=== PATIENT | female | born 1970 | race American Indian/Alaskan Native ===

== ENCOUNTER 2016-10-07 15:24 | Emergency (ER) | payer MEDICAID, OTHER ==
--- NOTE | 2016-10-07 15:57 | C.PDOC ---
History Of Present Illness SINUS BRETT X 2 WEEKS, "FOUL TASTE IN MOUTH", "FEELS LIKE ROOF OF MOUTH IS ON FIRE" X SEV DAYS. SUBJ FEVER. DENIES HO SEASONAL ALLERGIES. PS NOSE INSIDE FEELS RAW BUT DENIES USING SPRAYS OR EXCESSIVE NOSE BLOWING. EXAM HEENT +FRONTAL SINUS TEND B/L. NOSE +HYPEREMIC MUCOSA B/L NO VESICLES OR OTHER LESIONS NOTED, NO SCABS. NO NASAL DC. MOUTH: HARD PALATE WNL, NO NOTED LESIONS OR EXCESSIVE ERYTHEMA. 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 Time Seen by Provider: 10/07/16 15:54 Chief Complaint (Nursing): ENT Problem Past Medical History Vital Signs: Last Vital Signs Temp 97.9 F 10/07/16 15:27 Pulse 87 10/07/16 15:27 Resp 20 10/07/16 15:27 BP 115/82 10/07/16 15:27 Pulse Ox 98 10/07/16 15:27 - Social History Hx Alcohol Use: No Hx Substance Use: No - Immunization History Hx Tetanus Toxoid Vaccination: No Hx Influenza Vaccination: Yes Hx Pneumococcal Vaccination: No ED Course And Treatment O2 Sat by Pulse Oximetry: 98 Disposition Counseled Patient/Family Regarding: Diagnosis, Need For Followup, Rx Given - Disposition Referrals: Walter Adan MD [Staff Provider] - Disposition: HOME/ ROUTINE Disposition Time: 16:20 Condition: GOOD Prescriptions: Amoxicillin/Clavulanate [Augmentin 875 MG-125 MG] 1 tab PO BID #14 tab Instructions: Sinusitis (ED) Forms: [employer] (Greek) - Clinical Impression Clinical Impression: Sinusitis
[2016-10-07] MEDS ORDERED: Iohexol 240 (50 ml) PO STA (16:43)
[2016-10-07] MEDS ORDERED: Sodium Chloride 0.9% 1,000 ML IV ONE (16:45)
[2016-10-07 17:34] LABS: BASO % 0.4 % (0.0-2.0); EOS # 0.5 K/uL (0.0-0.7)
--- NOTE | 2016-10-07 17:37 | C.PDOC ---
History Of Present Illness 46-year-old female, PMHx includes ulcerative colitis, seen by GI, has recently moved to [place], and due to lack of resources, is unable to f/u with anyone. Patient states she has intermittent abdominal pain with bloody mucus stools. Over past several days, symptoms have been worsening, with associated appetite loss and weight loss, resulting in her coming to the ED for evaluation. She is also c/o sinus congestion with facial millan and pressure. She has no nasal discharge but does feel pain across her upper teeth. Time Seen by Provider: 10/07/16 15:54 Chief Complaint (Nursing): ENT Problem History Per: Patient History/Exam Limitations: no limitations Onset/Duration Of Symptoms: Days Current Symptoms Are (Timing): Still Present Severity: Moderate Past Medical History Reviewed: Historical Data, Nursing Documentation, Vital Signs Vital Signs: Last Vital Signs Temp 99.1 F 10/07/16 22:21 Pulse 82 10/07/16 20:55 Resp 88 H 10/07/16 22:21 BP 116/65 10/07/16 22:21 Pulse Ox 18 L 10/07/16 22:21 Family History: States: No Known Family Hx - Social History Hx Alcohol Use: No Hx Substance Use: No - Immunization History Hx Tetanus Toxoid Vaccination: No Hx Influenza Vaccination: Yes Hx Pneumococcal Vaccination: No Review Of Systems Except As Marked, All Systems Reviewed And Found Negative. Constitutional: Negative for: Fever, Chills Cardiovascular: Negative for: Chest Pain, Palpitations Respiratory: Negative for: Shortness of Breath Gastrointestinal: Positive for: Abdominal Pain, Hematochezia. Negative for: Nausea, Vomiting Musculoskeletal: Negative for: Back Pain Neurological: Negative for: Weakness, Numbness Physical Exam - Physical Exam Appears: Non-toxic, No Acute Distress Skin: Warm, Dry, No Rash Head: Atraumatic, Normacephalic Eye(s): bilateral: PERRL, EOMI, Conjunctiva Pale Nose: Normal Oral Mucosa: Moist Lips: Normal Appearing Neck: Normal ROM Chest: Symmetrical Cardiovascular: Rhythm Regular, No Murmur Respiratory: Normal Breath Sounds, No Accessory Muscle Use Gastrointestinal/Abdominal: Soft, Tenderness (Mild, lower.), No Guarding, No Rebound Extremity: Normal ROM Neurological/Psych: Oriented x3, Normal Speech ED Course And Treatment - Laboratory Results Result Diagrams: 10/07/16 17:22 10/07/16 17:22 Lab Interpretation: Abnormal (Mild anemia with normal WBC, CMP unremarkable.) O2 Sat by Pulse Oximetry: 98 Pulse Ox Interpretation: Normal - CT Scan/US CT ABDOMEN/PELVIS Other Rad Studies (CT/US): Read By Radiologist, Radiology Report Reviewed CT/US Interpretation: FINDINGS: Lower thorax: Heart size is normal. There is minimal atelectasis and scarring at the lung bases. ABDOMEN: Liver: There are multiple small low-attenuation lesions in the liver. Largest is consistent with cysts. Smaller lesions are too small to accurately characterize. Gallbladder and bile ducts: unremarkable. Pancreas: unremarkable. Spleen: unremarkable. Adrenals: unremarkable. Kidneys and ureters: unremarkable. Stomach and bowel: Stomach is partially distended with an air-fluid level. Rotation is normal. Small. bowel is partially opacified with contrast. There is no obstruction. Terminal ileum is. unremarkable.Appendix is not visualized.There is no pericecal inflammation. There is diffuse hepatic. flexure, transverse colon and descending colon wall thickening. There is less extensive sigmoid and. rectal wall thickening. Appendix: See stomach and bowel. PELVIS: Bladder: Bladder is almost empty. There is mild bladder wall thickening. Reproductive: Uterus is mildly enlarged. There are multiple nabothian cysts. There is a dominant. follicle the left ovary. Right adnexa is mildly prominent. ABDOMEN and PELVIS: Intraperitoneal space: There is no free air or free fluid. Bones/ joints: There is minimal degenerative osseous change. Soft tissues: There is a very small fat containing umbilical hernia. Vasculature: There are calcified phleboliths. Vascular structures are unremarkable. Lymph nodes: Adenopathy shotty. IMPRESSION: Colitis; probable fibroid uterus Reevaluation Time: 23:19 Reassessment Condition: Improved (after Toradol and Percocet.) - Physician Consult Information Physician Contacted: Riki Mccarthy Outcome Of Conversation: Patient can follow up in the clinic for further GI evaluation Disposition - Disposition Referrals: [facility] [Outside] Disposition: HOME/ ROUTINE Disposition Time: 23:20 Condition: IMPROVED Prescriptions: Acetaminophen/Oxycodone Hydr [Percocet 10/325 mg Tab] 1 tab PO Q6H PRN #15 tab PRN Reason: Pain, Severe (8-10) Amoxicillin/Clavulanate [Augmentin 875 MG-125 MG] 1 tab PO BID #14 tab Amoxicillin/Clavulanate [Augmentin 875 MG-125 MG] 1 tab PO BID #14 tab Instructions: Sinusitis (ED), Colitis (ED) Forms: [employer] (Icelandic) - Clinical Impression Clinical Impression: Sinusitis, Colitis - Scribe Statement The provider has reviewed the documentation as recorded by the Scribe (Milli Lopez) All medical record entries made by the Scribe were at my direction and personally dictated by me. I have reviewed the chart and agree that the record accurately reflects my personal performance of the history, physical exam, medical decision making, and the department course for this patient. I have also personally directed, reviewed, and agree with the discharge instructions and disposition.
[2016-10-07 17:42] LABS: EOS % 4.5 % (0.0-4.0); HEMATOCRIT 31.5 % (34.0-47.0); LYMPH # 3.1 K/uL (1.0-4.3); MEAN CELL VOLUME 82.3 fL (81.0-99.0); MEAN CORPUSCULAR HEMOGLOBIN 26.2 pg (27.0-31.0); MEAN CORPUSCULAR HGB CONC 31.8 g/dL (33.0-37.0); MEAN PLATELET VOLUME 7.4 fL (7.2-11.7); MONO % 9.5 % (0.0-10.0); RED CELL DISTRIBUTION WIDTH 15.4 % (11.5-14.5); WHITE BLOOD COUNT 10.6 K/uL (4.8-10.8)
[2016-10-07 17:56] LABS: RBC URINE 16 /hpf (0-3); URINE BILIRUBIN NEGATIVE (NEGATIVE); URINE BLOOD NEGATIVE (NEGATIVE); URINE COLOR Yellow (YELLOW); URINE GLUCOSE (UA) NORMAL (Normal); URINE KETONE NEGATIVE (NEGATIVE); URINE LEUKOCYTE ESTERASE NEG Leu/uL (Negative); URINE PROTEIN NEGATIVE (NEGATIVE); URINE UROBILINOGEN NORMAL mg/dL (0.2-1.0); WBC URINE 3 /hpf (0-5)
[2016-10-07] MEDS ORDERED: Sodium Chloride 0.9% 1,000 ML ONE (17:59)
[2016-10-07] MEDS ORDERED: Iohexol 240 (50 ml) ONE (17:59)
[2016-10-07 18:21] LABS: CHLORIDE 99 mmol/L (98-107); SODIUM 140 mmol/L (132-148)
[2016-10-07 18:22] LABS: POTASSIUM 3.7 mmol/L (3.6-5.2)
[2016-10-07 18:24] LABS: ALB/GLOB RATIO 0.8 (1.0-2.1); ALKALINE PHOSPHATASE 59 U/L (38-126); ALT/SGPT 19 U/L (9-52); AST/SGOT 14 U/L (14-36); BILIRUBIN,TOTAL 0.3 mg/dL (0.2-1.3); BLOOD UREA NITROGEN 8 mg/dL (7-17); CARBON DIOXIDE 25 mmol/L (22-30); GFR AFRICAN-AMERICAN > 60; GLUCOSE,RANDOM 83 mg/dL (65-105); TOTAL PROTEIN 6.6 g/dL (6.3-8.3)
[2016-10-07 18:25] LABS: CALCIUM 8.3 mg/dl (8.6-10.4)
[2016-10-07] MEDS ORDERED: Iohexol 300 100 ML IJ ONE (18:58)
--- NOTE | 2016-10-07 20:36 | CT ---
EXAM: CT Abdomen and Pelvis With Intravenous Contrast CLINICAL HISTORY: 46 years old, female; Pain; Abdominal pain; Generalized; Additional info: Abd pain with HX ulcerative colitis TECHNIQUE: Axial computed tomography images of the abdomen and pelvis with intravenous contrast. This CT exam was performed using one or more of the following dose reduction techniques: automated exposure control, adjustment of the mA and/or kV according to patient size, and/or use of iterative reconstruction technique. Coronal and sagittal reformatted images were created and reviewed. CONTRAST: 100 mL of omnipaque 300 administered intravenously. EXAM DATE/TIME: 10/07/2016 4:43 PM COMPARISON: There are no prior studies for comparison. FINDINGS: Lower thorax: Heart size is normal. There is minimal atelectasis and scarring at the lung bases ABDOMEN: Liver: There are multiple small low-attenuation lesions in the liver. Largest is consistent with cysts. Smaller lesions are too small to accurately characterize. Gallbladder and bile ducts: unremarkable Pancreas: unremarkable Spleen: unremarkable Adrenals: unremarkable Kidneys and ureters: unremarkable Stomach and bowel: Stomach is partially distended with an air-fluid level. Rotation is normal. Small bowel is partially opacified with contrast. There is no obstruction. Terminal ileum is unremarkable.Appendix is not visualized.There is no pericecal inflammation. There is diffuse hepatic flexure, transverse colon and descending colon wall thickening. There is less extensive sigmoid and rectal wall thickening. Appendix: See stomach and bowel PELVIS: Bladder: Bladder is almost empty. There is mild bladder wall thickening. Reproductive: Uterus is mildly enlarged. There are multiple nabothian cysts. There is a dominant follicle the left ovary. Right adnexa is mildly prominent. ABDOMEN and PELVIS: Intraperitoneal space: There is no free air or free fluid. Bones/joints: There is minimal degenerative osseous change. Soft tissues: There is a very small fat containing umbilical hernia. Vasculature: There are calcified phleboliths. Vascular structures are unremarkable. Lymph nodes: Adenopathy shotty IMPRESSION: Colitis; probable fibroid uterus Additional findings as described above.
[2016-10-07] MEDS ORDERED: Morphine 4 MG/ML VIAL ONE (22:29)
[2016-10-07] MEDS ORDERED: Amoxicillin-Clav 875-125 mg Tab PO STA (23:22)
[2016-10-07] MEDS ORDERED: Oxycodone/Acetaminophen 5/325 mg Tab PO STA (23:23)
[2016-10-07] MEDS ORDERED: Oxycodone/Acetaminophen 5/325 mg Tab ONE (23:29)
[2016-10-07] MEDS ORDERED: Amoxicillin-Clav 875-125 mg Tab PO ONE (23:29)
[2016-10-07 23:34] VITALS: BP 103/68; PULSE 90; RESP 16; TEMP 97.8; O2SAT 99
== END 2016-10-07 23:59 | disposition home or self-care (01) ==
LOC: C.ER 15:24
DX: K52.9 Noninfective gastroenteritis and colitis, unspecified (principal); J32.9 Chronic sinusitis, unspecified
CPT/HCPCS: 74177; 80053; 81001; 83690; 84703; 85025; 96374; 96375; 99285; J1885; J2270; J7040; Q9966; Q9967

== ENCOUNTER 2018-07-23 05:53 | Emergency (ER) | payer MEDICAID, OTHER ==
[2018-07-23 06:01] VITALS: BP 114/76; PULSE 63; RESP 20; TEMP 98; O2SAT 100
--- NOTE | 2018-07-23 06:50 | C.PDOC ---
History Of Present Illness patient c/o bilateral eye irritation and redness that started overnight. she states she awoke in the midle of the night and her eyes felt irritated like there were little particles inside. she reports washing a car yesterday and believe some of the chemical may have gotten into her eyes from rubbing. she admits to currently having allergy symptom in her throat and nose. she denies changes to her vision. Time Seen by Provider: 07/23/18 06:43 Chief Complaint (Nursing): Eye Problem History Per: Patient History/Exam Limitations: no limitations Onset/Duration Of Symptoms: Hrs Current Symptoms Are (Timing): Still Present Injury To Eye?: No Severity: Moderate Quality: Dull Wears Contact Lens?: No Associated Symptoms: Swelling, Itching Past Medical History Vital Signs: Last Vital Signs Temp 98 F 07/23/18 05:59 Pulse 63 07/23/18 05:59 Resp 20 07/23/18 05:59 BP 114/76 07/23/18 05:59 Pulse Ox 100 07/23/18 05:59 Primary Care Provider: Clinic,Med Surg - Medical History Other PMH: ulcerative colitis, hypotension Family History: States: No Known Family Hx, Unknown Family Hx - Social History Hx Alcohol Use: No Hx Substance Use: No - Immunization History Hx Tetanus Toxoid Vaccination: No Hx Influenza Vaccination: Yes Hx Pneumococcal Vaccination: No Review Of Systems Except As Marked, All Systems Reviewed And Found Negative. Eyes: Positive for: Conjunctivae Inflammation, Redness Physical Exam - Physical Exam Appears: Well, Non-toxic, No Acute Distress Head: Atraumatic, Normacephalic Eye(s): bilateral: PERRL, EOMI, Other (conjunctival injection, chemosis, tearing, mild upper lid edema) Nose: Normal, No Discharge Oral Mucosa: Moist Tongue: Normal Appearing Lips: Normal Appearing Neck: Normal ROM Neurological/Psych: Oriented x3, Normal Speech Gait: Steady ED Course And Treatment O2 Sat by Pulse Oximetry: 100 Disposition Counseled Patient/Family Regarding: Diagnosis, Need For Followup, Rx Given - Disposition Disposition: HOME/ ROUTINE Disposition Time: 07:02 Condition: STABLE Prescriptions: Olopatadine 0.1% Opht [Patanol 0.1% Opht Soln] 5 ml OU BID #1 bottle Instructions: Conjunctivitis (Noninfectious Pinkeye) (DC) Forms: General Discharge Instructions, Amarin (Australian), Work Excuse - Clinical Impression Clinical Impression: Allergic conjunctivitis
== END 2018-07-23 07:12 | disposition home or self-care (01) ==
LOC: C.ER 05:53
DX: H10.13 Acute atopic conjunctivitis, bilateral (principal)